=== PATIENT | female | born 1990 | race African-American/Black ===

== ENCOUNTER 2019-08-05 18:38 | Emergency (ER) | payer OTHER ==
[~2019-08-05] VITALS: Ht 167.6 cm; Wt 127.0 kg
--- NOTE | 2019-08-05 18:52 | NUR ---
CAME IN FOR ANAL AREA SORENESS AFTER HAVING 2 BM'S DESCRIBED "PASS OUT LIKE 2 LOAVES OF BREAD". TO ER BED 10, HOOKED TO MONITOR, CHANGED TO HOSP GOWN, PROVIDED W WARM BLANKET, AWAITING MD RONQUILLO.
--- NOTE | 2019-08-05 18:59 | NUR ---
DR DREW AT BEDSIDE
[2019-08-05] MEDS ORDERED: NA PHOS,M-B/NA PHOS,DI-BA 1 EA ENEMA RC ONE ×2 (19:30→19:34)
--- NOTE | 2019-08-05 19:30 | NUR ---
report given to rex parada for homero
--- NOTE | 2019-08-05 20:00 | NUR ---
pt had a successful BM.
--- NOTE | 2019-08-05 20:28 | NUR ---
Patient discharged to home in stable condition. Rx and Written and verbal after care instructions given. Patient verbalizes understanding of instruction.
[2019-08-05 20:55] VITALS: BP 135/79
== END 2019-08-05 20:56 | disposition home or self-care (01) ==
LOC: ER 18:45
DX: K62.89 Other specified diseases of anus and rectum (principal); K59.00 Constipation, unspecified; Z88.0 Allergy status to penicillin; Z60.2 Problems related to living alone